=== PATIENT | female | born 1955 | race Caucasian/White ===

== ENCOUNTER 2018-09-14 06:18 | Inpatient (IN) | payer BC ==
[2018-09-14] MEDS ORDERED: SOD CHLORIDE 0.9% 1,000 ML IV (07:00)
[2018-09-14] MEDS ORDERED: ROCURONIUM 50 MG INJ ×2 (07:00→09:15)
[2018-09-14] MEDS ORDERED: CEFAZOLIN 1 GM INJ (07:00)
[2018-09-14] MEDS: CEFAZOLIN 2 GM/50 ML (PMX) 50 ML IVPB (07:00)
[2018-09-14] MEDS ORDERED: DESFLURANE 15 MIN (07:00)
[2018-09-14] MEDS ORDERED: GENTAMICIN 80 MG INJ ×2 (08:15→10:59)
[2018-09-14] MEDS: MUPIROCIN 2% 22 GM OINT TOP (08:30)
[2018-09-14] MEDS ORDERED: PROPOFOL 20 ML (09:15)
[2018-09-14] MEDS ORDERED: FENTAnyl 50 MCG/ML VIAL (09:15)
[2018-09-14] MEDS ORDERED: LIDOCAINE 1% (MDV) 20 ML INJ (09:15)
[2018-09-14] MEDS ORDERED: MIDAZOLAM 1 MG/ML 2 ML INJ (09:15)
[2018-09-14] MEDS ORDERED: ONDANSETRON 4 MG INJ (09:31)
[2018-09-14] MEDS ORDERED: DEXAMETHASONE 4 MG/ML 5 ML INJ (09:31)
[2018-09-14] MEDS ORDERED: HYDROmorphONE 2 MG/ML SYG (09:39)
[2018-09-14] MEDS ORDERED: PHENYLephrine (100 MCG/ML) 5ML SYG (09:58)
[2018-09-14] MEDS: LIDOCAINE 1%/EPI (1:100,000) (MDV) 20 ML (10:10)
[2018-09-14] MEDS: BUPIVACAINE 0.25% (STERILE-PAK) 30 ML INJ INJ (10:11)
[2018-09-14] MEDS: POLYMYXIN/BACITRACIN 1L IRRIG (10:14)
[2018-09-14] MEDS ORDERED: LIDOCAINE 1%/EPI (1:100,000) (MDV) 20 ML (10:42)
[2018-09-14] MEDS ORDERED: BUPIVACAINE 0.25% (MPF) 30 ML INJ (10:42)
[2018-09-14] MEDS ORDERED: morphine 2 MG INJ IV (11:00)
[2018-09-14] MEDS ORDERED: KETOROLAC 30 MG INJ (11:28)
[2018-09-14] MEDS ORDERED: SUGAMMADEX SODIUM 200 MG/2 ML VIAL IV (12:15)
[2018-09-14] MEDS ORDERED: hydrALAzine 20 MG INJ IV ×2 (13:00→15:00)
[2018-09-14] MEDS ORDERED: HYDROmorphONE 1 MG/5 ML IV SYRINGE IV (13:00)
[2018-09-14] MEDS ORDERED: LABETALOL HCL 20MG INJ IV (13:00)
[2018-09-14] MEDS: ONDANSETRON 4 MG INJ IV (13:20)
[2018-09-14] MEDS ORDERED: ALPRAZOLAM 0.5 MG TAB PO (15:00)
[2018-09-14] MEDS: D5W-0.45 NACL + KCL 20 MEQ 1,000 ML IV ×2 (15:28→18:50)
[2018-09-14] MEDS: CEFAZOLIN 1 GM/50 ML (PMX) 50 ML IVPB (16:40)
[2018-09-14] MEDS ORDERED: CEFAZOLIN 1 GM/50 ML (PMX) 50 ML IVPB (18:00)
[2018-09-14] MEDS: ACETAMINOPHEN 1000MG/100ML IV 100 ML IVPB (19:15)
[2018-09-14] MEDS: FAMOTIDINE 20 MG TAB PO (20:28)
[2018-09-15] MEDS: CEFAZOLIN 1 GM/50 ML (PMX) 50 ML IVPB ×3 (00:08→14:06)
[2018-09-15] MEDS: morphine 4 MG/ML VIAL IV (00:24)
[2018-09-15] MEDS: D5W-0.45 NACL + KCL 20 MEQ 1,000 ML IV (02:14)
[2018-09-15 05:39] LABS: ADD MAN DIFF? NO
[2018-09-15 05:44] LABS: BASOPHILS % 0.1 % (0.0-2.0); HEMATOCRIT 39.1 % (37.0-47.0); HEMOGLOBIN 13.2 g/dl (12.0-16.0); LYMPHOCYTES # 0.9 10^3/ul (0.8-2.9); MEAN CORPUSCULAR HEMOGLOBIN 33.2 pg (29.0-33.0); MEAN CORPUSCULAR HGB CONC 33.8 g/dl (32.0-37.0); MEAN CORPUSCULAR VOLUME 98.5 fl (82.0-101.0); MEAN PLATELET VOLUME 10.6 fl (7.4-10.4); MONOCYTE # 0.4 10^3/ul (0.3-0.9); MONOCYTES % 3.3 % (0.0-11.0); NEUTROPHIL # 9.9 10^3/ul (1.6-7.5); NEUTROPHILS % 88.1 % (39.0-77.0); PLATELET COUNT 189 10^3/UL (140-415); RED BLOOD COUNT 3.97 10^6/ul (4.20-5.40); RED CELL DISTRIBUTION WIDTH 12.3 % (11.5-14.5)
[2018-09-15 05:44] LABS: WHITE BLOOD COUNT 11.2 10^3/ul (4.8-10.8)
[2018-09-15 06:14] LABS: ANION GAP 8 (5-13); BLOOD UREA NITROGEN 16 mg/dl (7-20); CALCIUM 9.8 mg/dl (8.4-10.2); CARBON DIOXIDE 26 mmol/L (21-31); CHLORIDE 102 mmol/L (97-110); CREATININE 0.67 mg/dl (0.44-1.00); Estimated GFR > 60 mL/min (>60); GLUCOSE 181 mg/dl (70-220); POTASSIUM 4.3 mmol/L (3.5-5.1); SODIUM 136 mmol/L (135-144)
[2018-09-15 06:19] LABS: MAGNESIUM 1.5 mg/dl (1.7-2.5)
[2018-09-15] MEDS: FAMOTIDINE 20 MG TAB PO (08:26)
[2018-09-15] MEDS: ACETAMINOPHEN 1000MG/100ML IV 100 ML IVPB (08:27)
[2018-09-15] MEDS: AMLODIPINE 10 MG TAB PO (09:00)
[2018-09-15] MEDS ORDERED: HYDROCODONE/APAP (5/325) TAB PO (10:30)
[2018-09-15] MEDS: MAGNESIUM SULFATE 3 GM in DEXTROSE 5% 100 ML IVPB (10:50)
[2018-09-15] MEDS: HYDROCODONE/APAP (5/325) TAB PO (14:10)
== END 2018-09-15 15:30 | disposition home or self-care (01) | DRG 583 ==
LOC: REC 06:18 → MS1 13:45
PROC: 0HTT0ZZ Resection of Right Breast, Open Approach (ICD-10-PCS; principal; 2018-09-14 09:00)
PROC: 07T50ZZ Resection of Right Axillary Lymphatic, Open Approach (ICD-10-PCS; 2018-09-14 09:00)
PROC: 0HUT0KZ Supplement Right Breast with Nonautologous Tissue Substitute, Open Approach (ICD-10-PCS; 2018-09-14 09:00)
PROC: 0HHT0NZ Insertion of Tissue Expander into Right Breast, Open Approach (ICD-10-PCS; 2018-09-14 09:00)
DX: C50.911 Malignant neoplasm of unspecified site of right female breast (principal); I10 Essential (primary) hypertension; F41.9 Anxiety disorder, unspecified; E83.42 Hypomagnesemia
CPT/HCPCS: 80048; 83735; 85025; 87086; 88307